=== PATIENT | male | born 1980 ===

== ENCOUNTER 2021-01-31 19:57 | Emergency (ER) | payer SELFPAY ==
--- NOTE | 2021-01-31 | ECG_ITS ---
Test Reason : ANXIETY Blood Pressure : / mmHG Vent. Rate : 093 BPM Atrial Rate : 093 BPM P-R Int : 156 ms QRS Dur : 092 ms QT Int : 364 ms P-R-T Axes : 059 061 030 degrees QTc Int : 452 ms Normal sinus rhythm Possible Left atrial enlargement Borderline ECG No previous ECGs available Referred By: Jay Jay Morris Electronically Signed By:MURALI PIÑA MD
[2021-01-31 20:08] VITALS: BP 144/87; PULSE 102; RESP 18; TEMP 36.5; O2SAT 100
--- NOTE | 2021-01-31 23:43 | PC.NURSE ---
Attempted to call patient into ED. Pt not in waiting room. Other patients stating he left.
== END 2021-01-31 23:50 | disposition left against medical advice (07) ==
LOC: HO.ED 23:49
PROVIDERS: Emergency Provider Emergency Medicine
DX: R07.9 Chest pain, unspecified (principal); F41.9 Anxiety disorder, unspecified
CPT/HCPCS: 93005; 99283